=== PATIENT | female | born 1965 | race Hispanic/Latino ===

== ENCOUNTER 2020-11-26 17:58 | Emergency (ER) | payer OTHER ==
[~2020-11-26] VITALS: Ht 167.6 cm; Wt 72.1 kg
[2020-11-26] MEDS ORDERED: LOSARTAN-HCTZ1 EAC1 (19:14)
[2020-11-26] MEDS ORDERED: ULTRAM50 MG PO (20:24)
[2020-11-26] MEDS ORDERED: CLINDAMYCIN HC150 MG PO (20:27)
== END 2020-11-26 20:45 | disposition home or self-care (01) ==
LOC: FSED 19:33
DX: K08.89 Other specified disorders of teeth and supporting structures (principal); R68.84 Jaw pain; R51.9 Headache, unspecified; I10 Essential (primary) hypertension; E78.5 Hyperlipidemia, unspecified
CPT/HCPCS: 99282